=== PATIENT | male | born 1930 | race Asian ===

== ENCOUNTER → 2016-07-22 | Outpatient (CLI) | payer OTHER ==
--- NOTE | 2016-07-22 11:02 | DX ---
PA and Lateral Chest Clinical Indications: Follow up right upper lobe nodule in an 86-year-old male. Comparison: March 14, 2016 and January 15, 2016. Findings: No focal pulmonary consolidation is seen. Again noted is stable apical pleural thickening b ilaterally more prominent on the right side. There is also a linear area of opacity laterally in the right upper lobe. This region appears smaller than on the January study and is less likely to represen t a pulmonary nodule rather than focal scarring. There is hyperexpansion seen with flattening of the hemidiaphragms noted. The heart size and pulmonary vascularity are normal. Pleural surfaces and bony thorax are negative for acute abnormality. Minimal scoliotic curvature and spinal degenerative change s are noted. Aortic tortuosity can be associated with systemic hypertension. Impression: 1. Configuration of the chest suggests COPD/emphysema. 2. Apical pleural thickening and probable scarring in the right upper lobe laterally.
== END ==
LOC: BMCIMAGING 09:09
PROVIDERS: ATTEND Internal Medicine
DX: J98.4 Other disorders of lung (principal)

== ENCOUNTER → 2017-02-11 | Outpatient (CLI) | payer OTHER | LOC: BMCIMAGING 09:01 | PROVIDERS: ATTEND Internal Medicine | DX: Z13.83 Encounter for screening for respiratory disorder NEC (principal); R91.8 Other nonspecific abnormal finding of lung field; I25.10 Atherosclerotic heart disease of native coronary artery without angina pectoris ==

== ENCOUNTER 2017-07-17 12:37 | Emergency (ER) | payer OTHER ==
[2017-07-17 12:46] VITALS: RESP 16
--- NOTE | 2017-07-17 13:11 | EDPHY ---
H & P Smoking Status: Never smoked Time Seen by Provider: 07/17/17 12:58 HPI/ROS: CHIEF COMPLAINT: Tongue laceration HISTORY OF PRESENT ILLNESS: 87-year-old male with up-to-date tetanus, no anticoagulant use, was using ham and cheese sandwich when he accidentally bit the anterior aspect of his tongue. PHYSICAL EXAM (Prior to examination, patient consented to physical exam, hands were washed and my usual and customary physical exam procedures followed) 1) GENERAL: Well-developed, well-nourished, alert and oriented. Appears to be in no acute distress. 2) HEAD: Normocephalic 3) HEENT: sclera anicteric . On the anterior aspect of the patient's nose he has a hemostatic non through and through 1 cm laceration. 4) LUNGS: Breathing comfortably. (William Lua) Constitutional: Initial Vital Signs Temperature (C) 36.6 C 07/17/17 12:43 Heart Rate 90 07/17/17 12:43 Respiratory Rate 16 07/17/17 12:43 Blood Pressure 133/82 H 07/17/17 12:43 O2 Sat (%) 94 07/17/17 12:43 O2 Delivery Mode Room Air Allergies/Adverse Reactions: No Known Allergies Allergy (Unverified 06/25/14 13:52) Home Medications: Medication Instructions Recorded Adalat CC 30 mg (RX) 06/25/14 Naprosyn 06/25/14 Proscar 5 MG (RX) 06/25/14 Amoxicillin Trihydrate 500 mg PO Q8 7 Days cap 07/17/17 [Amoxicillin 500mg cap] MDM/Departure - MDM Procedures: Procedure: Laceration repair. Indication: Continued slow bleeding from laceration site I explained the indications, risks and benefits for both laceration repair and anesthetic administration. Verbal consent was obtained from the patient . The laceration on the location was anesthetized using 0.5% bupivicaine with epinephrine. After anesthetic administered the patient was observed for a period of time and had no apparent adverse effects. The wound was cleaned, prepped, draped in normal sterile fashion and explored to its base. No foreign body seen, no foreign bodies palpated. The wound was repaired with 2 simple interrupted 6 0 Vicryl sutures. The wound repair was simple. The procedure was performed by myself. Patient has been informed that scarring will occur, although efforts have been made to minimize this. Laceration was subsequently hemostatic. (William Lua) ED Course/Re-evaluation: 2 sutures were placed in this wound as a continued to bleed while in the emergency department. He has septal hemostatic after wound closure. Advised to not eat food which contained small particle matter or crunchy food. Prophylactic antibiotics started. Care of patient under supervision of secondary supervising physician Dr lincoln . (William Lua) The patient was evaluated and managed by the physician's drug safety assistant. My cosignature indicates that I reviewed the chart and I agree with the findings and plan of care as documented. I am the secondary supervising physician. ( Christina Lincoln) - Depart Disposition: Home, Routine, Self-Care Clinical Impression: Laceration of tongue Qualifiers: Encounter type: initial encounter Qualified Code(s): S01.512A - Laceration without foreign body of oral cavity, initial encounter Condition: Good Instructions: Laceration (ED) Prescriptions: Amoxicillin Trihydrate [Amoxicillin 500mg cap] 500 mg PO Q8 7 Days cap Referrals: Sonia Schroeder MD [Medical Doctor] - 07/21/17
[2017-07-17 14:46] VITALS: BP 122/81; PULSE 88; TEMP 98.1; O2SAT 97
== END 2017-07-17 14:46 | disposition home or self-care (01) ==
PROC: 0CQ7XZZ Repair Tongue, External Approach (ICD-10-PCS; principal; 2017-07-17)
DX: S01.512A Laceration without foreign body of oral cavity, initial encounter (principal); X58.XXXA Exposure to other specified factors, initial encounter

== ENCOUNTER → 2017-08-20 | Outpatient (CLI) | payer OTHER | LOC: BMCIMAGING 12:56 | PROVIDERS: ATTEND Internal Medicine | DX: R91.8 Other nonspecific abnormal finding of lung field (principal) ==